=== PATIENT | female | born 1985 | race Caucasian/White ===

== ENCOUNTER 2020-08-06 05:04 | Day surgery (SDC) | payer BC ==
[2020-07-30 12:13] LABS: BASOPHILS # (AUTO) 0.1 X10'3 (0-0.2); BASOPHILS % (AUTO) 0.8 % (0-1); EOSINOPHILS # (AUTO) 0.3 X10'3 (0-0.9); EOSINOPHILS % (AUTO) 2.7 % (0-6); LYMPHOCYTES # (AUTO) 3.6 X10'3 (1.1-4.8); LYMPHOCYTES % (AUTO) 36.2 % (21-51); MEAN CORPUSCULAR HEMOGLOBIN 25.7 PG (27.0-31.0); MEAN CORPUSCULAR HGB CONC 32.3 g/dL (33.0-36.5); MEAN CORPUSCULAR VOLUME 79.6 FL (78-98); MEAN PLATELET VOLUME 7.9 FL (7.4-10.4); MONOCYTES # (AUTO) 0.7 X10'3 (0-0.9); MONOCYTES % (AUTO) 7.4 % (2-12); NEUTROPHILS # (AUTO) 5.2 X10'3 (1.8-7.7); NEUTROPHILS % (AUTO) 52.9 % (42-75); PRE OP HEMATOCRIT 37.9 % (35.0-45.0); PRE OP HEMOGLOBIN 12.2 g/dL (12.0-16.0); PRE OP PLATELET COUNT 383 X10'3 (140-440); RED BLOOD COUNT 4.76 X10'6 (4.20-5.60); RED CELL DISTRIBUTION WIDTH 16.5 % (11.5-14.5)
[2020-07-30 12:35] LABS: HCG SERUM QL NEGATIVE
[~2020-08-06] VITALS: Ht 170.2 cm; Wt 119.3 kg
[~2020-08-06 05:04] MED LIST: ASCO-134 PO; CHOL10006 PO; FAMO20TA47 PO; FERR236T3 PO; LEVO137T2 PO; ZINC50TA67 PO; ringers solution, lacted 1,000 ML IV SCH
[2020-08-06] MEDS ORDERED: clindamycin-Cleocin 900mg/D5W 50 ML IV ONE (05:30)
[2020-08-06] MEDS ORDERED: famotidine 20mg tablet PO ONE (05:30)
[2020-08-06] MEDS ORDERED: LIDOcaine 1% (10mg/ml) 2ml vial ONE (05:48)
[2020-08-06 06:37] VITALS: BP 118/80
[2020-08-06 06:38] VITALS: BP 118/80
[2020-08-06] MEDS ORDERED: BUPIVAcaine/PF 2.5mg/ml (0.25%) 10ml vial ONE (07:00)
[2020-08-06] MEDS ORDERED: LIDOcaine 0.5% (5mg/ml) 50ml vial ONE (07:10)
[2020-08-06] MEDS ORDERED: fentaNYL/PF 50MCG/1 ML 2ML syringe IV PRN ×2 (07:15)
[2020-08-06] MEDS ORDERED: ondansetron/PF 4mg/2ml inj IV PRN (07:15)
[2020-08-06] MEDS ORDERED: hydrALAZINE 20mg/ml inj. IV PRN (07:15)
[2020-08-06] MEDS ORDERED: ringers solution, lacted 1,000 ML IV SCH (07:15)
[2020-08-06] MEDS ORDERED: labetalol 20mg/4ml (5mg/ml) syringe IV PRN (07:15)
[2020-08-06] MEDS ORDERED: morphine 2 MG/ML inj. syringe IV PRN (07:15)
[2020-08-06] MEDS ORDERED: morphine 4 MG/ML inj SYRINge IV PRN (07:15)
[2020-08-06] MEDS ORDERED: fentaNYL/PF 50MCG/1 ML 2ML syringe ONE (07:22)
[2020-08-06] MEDS ORDERED: MIDAZolam 1mg/ml 10ml vial ONE (07:22)
[2020-08-06] MEDS ORDERED: ketorolac trometh. 30mg/ml inj. ONE (07:25)
[2020-08-06 07:47] VITALS: BP 94/74
--- NOTE | 2020-08-06 07:47 | NUR ---
Received from OR via [facility] , accompanied by Anesthesiologist RUTH and report given by Anesthesiolgist. PT. AWAKE. VSS ON RA. R. WRIST DRESSING CDI. IV IN L. HAD 20 G. CDI INFUSING LR AT 100 ML/HR. DENIES PAIN. SENSATION, MOVEMENT AND PULSES INTACT IN ALL EXTREMITIES. NO N/V. RESTING COMFORTABLY. Addendum: 08/06/20 at 0938 by Eda Perdomo RN Amended: Links added.
[2020-08-06 07:50] VITALS: BP 94/74
[2020-08-06 08:00] VITALS: BP 105/71
[2020-08-06 08:10] VITALS: BP 118/67
--- NOTE | 2020-08-06 08:17 | NUR ---
ALL DISCHARGE CRITERIA HAS BEEN MET. VSS, DENIES PAIN. DENIES NEED TO VOID. ABLE TO SAFELY AMBULATE AND TRANSFER SELF. IV IN LEFT HAND REMOVED WITHOUT ANY COMPLICATIONS. ALL DISCHARGE INSTRUCTIONS COVERED WITH PATIENT AND ALL QUESTIONS ANSWERED. PATIENT TAKEN OUT VIA WHEELCHAIR TO PERSONAL VEHICLE WHERE FAMILY/FRIEND DROVE PATIENT HOME. Addendum: 08/06/20 at 0938 by Eda Perdomo RN Amended: Links added.
== END 2020-08-06 08:17 | disposition home or self-care (01) ==
LOC: PAS 05:04
PROVIDERS: ATTEND Orthopaedic Surgery Hand Surgery
DX: G56.01 Carpal tunnel syndrome, right upper limb (principal); E03.9 Hypothyroidism, unspecified; D64.9 Anemia, unspecified; J45.909 Unspecified asthma, uncomplicated; K21.9 Gastro-esophageal reflux disease without esophagitis; E66.01 Morbid (severe) obesity due to excess calories; Z68.41 Body mass index [BMI] 40.0-44.9, adult; Z20.822 Contact with and (suspected) exposure to COVID-19; Z90.49 Acquired absence of other specified parts of digestive tract; Z98.890 Other specified postprocedural states; Z88.1 Allergy status to other antibiotic agents; Z79.899 Other long term (current) drug therapy
CPT/HCPCS: 29848; 36415; 84703; 85025; J1885; J2001; J2250; J3010; J3490; U0003; U0005; A4215; A7000; J7120

== ENCOUNTER 2020-09-14 05:59 | Day surgery (SDC) | payer BC ==
[2020-09-07 11:59] LABS: BASOPHILS % (AUTO) 0.6 % (0-1); EOSINOPHILS # (AUTO) 0.2 X10'3 (0-0.9); LYMPHOCYTES # (AUTO) 3.1 X10'3 (1.1-4.8); LYMPHOCYTES % (AUTO) 39.9 % (21-51); MEAN CORPUSCULAR HEMOGLOBIN 25.7 PG (27.0-31.0); MEAN CORPUSCULAR HGB CONC 32.3 g/dL (33.0-36.5); MEAN CORPUSCULAR VOLUME 79.5 FL (78-98); MEAN PLATELET VOLUME 7.7 FL (7.4-10.4); MONOCYTES # (AUTO) 0.6 X10'3 (0-0.9); MONOCYTES % (AUTO) 8.1 % (2-12); NEUTROPHILS # (AUTO) 3.8 X10'3 (1.8-7.7); NEUTROPHILS % (AUTO) 48.4 % (42-75); PRE OP HEMATOCRIT 37.5 % (35.0-45.0); PRE OP HEMOGLOBIN 12.1 g/dL (12.0-16.0); PRE OP PLATELET COUNT 346 X10'3 (140-440); RED BLOOD COUNT 4.72 X10'6 (4.20-5.60); RED CELL DISTRIBUTION WIDTH 15.8 % (11.5-14.5)
[~2020-09-14] VITALS: Ht 170.2 cm; Wt 121.1 kg
[~2020-09-14 05:59] MED LIST changes: +ceFAZolin inj. 3,000 MG in normal saline 100ml IV soln 100 ML IV ONE; +famotidine 20mg tablet PO ONE
[2020-09-14] MEDS ORDERED: BUPIVAcaine/PF 2.5mg/ml (0.25%) 10ml vial ONE (06:58)
[2020-09-14] MEDS ORDERED: LIDOcaine 0.5% (5mg/ml) 50ml vial ONE (07:25)
[2020-09-14] MEDS ORDERED: proCHLORperazine 10 MG/2 ml inj IV PRN (07:35)
[2020-09-14] MEDS ORDERED: ringers solution, lacted 1,000 ML IV SCH (07:35)
[2020-09-14] MEDS ORDERED: morphine 2 MG/ML inj. syringe IV PRN (07:35)
[2020-09-14] MEDS ORDERED: morphine 4 MG/ML inj SYRINge IV PRN (07:35)
[2020-09-14] MEDS ORDERED: meperidine/PF 25mg/ml syringe IV PRN ×3 (07:35)
[2020-09-14] MEDS ORDERED: ondansetron/PF 4mg/2ml inj IV PRN (07:35)
[2020-09-14 07:48] VITALS: BP 145/73
[2020-09-14 07:49] VITALS: BP 145/73
[2020-09-14] MEDS ORDERED: fentaNYL/PF 50MCG/1 ML 2ML syringe ONE (08:39)
[2020-09-14] MEDS ORDERED: midazolam 1 mg/ML 2ml injection ONE (08:39)
[2020-09-14] MEDS ORDERED: propofol inj 20 ML IV ONE (09:03)
[2020-09-14 09:11] VITALS: BP 99/64
[2020-09-14 09:20] VITALS: BP 95/69
--- NOTE | 2020-09-14 09:28 | NUR ---
Received from OR via [facility] IN STABLE CONDITION , accompanied by Anesthesiologist and HARD TILE SETTER report given by HARD TILE SETTER AND Anesthesiolgist. Addendum: 09/14/20 at 0959 by Sandy Reyes RN Amended: Links added.
[2020-09-14 09:30] VITALS: BP 101/73
--- NOTE | 2020-09-14 09:50 | NUR ---
PATIENT DISCHARGED FROM PACU AFTER DISCHARGE INSTRUCTIONS GIVEN. PATIENT GAVE VERBAL UNDERSTANDING OF INSTRUCTIONS GIVEN. PATIENT LEFT FACILITY VIA WHEELCHAIR WITH VOLUNTEER. Addendum: 09/14/20 at 0951 by Sandy Reyes RN Amended: Links added.
== END 2020-09-14 09:51 | disposition home or self-care (01) ==
LOC: PAS 05:59
PROVIDERS: ATTEND Orthopaedic Surgery Hand Surgery
DX: G56.02 Carpal tunnel syndrome, left upper limb (principal); E03.9 Hypothyroidism, unspecified; K21.9 Gastro-esophageal reflux disease without esophagitis; D64.9 Anemia, unspecified; Z88.1 Allergy status to other antibiotic agents; Z79.899 Other long term (current) drug therapy; Z90.49 Acquired absence of other specified parts of digestive tract; Z98.890 Other specified postprocedural states
CPT/HCPCS: 29848; 36415; 85025; J0690; J2001; J2250; J2704; J3010; J3490; U0003; U0005; Z7506; Z7512; A4215; A4618; A6449; J7120